=== PATIENT | male | born 1995 | race Caucasian/White ===

== ENCOUNTER → 2020-12-30 09:41 | Outpatient (CLI) | payer BC, SELFPAY ==
--- NOTE | 2020-12-30 09:48 | RAD_ITS ---
STUDY: X-RAY - ESOPHAGUS (BARIUM SWALLOW) WITH FLUOROSCOPY REASON FOR EXAM: Male, 25 years old. ESOPHAGEAL DYSPHAGIA TECHNIQUE: 28 view(s) of the esophagus were obtained following swallowing of barium. FLUOROSCOPY TIME (if supplied): (0:27) minutes/seconds COMPARISON: None. FINDINGS: There is no demonstrated esophageal foreign body. There is no demonstrated stricture or mucosal abnormality. Normal gastroesophageal junction, without a demonstrated hiatal hernia. Patient was not able to to ingest a 12 mm tablet at bedtime. Normal visualized aortic arch and descending thoracic aorta. Normal visualized pulmonary parenchyma. Normal visualized osseous structures of the thorax. RAD/Esophagus Single Contrast IMPRESSION: Normal plain film x-ray examination (barium swallow) of the esophagus. Electronically Signed: Ki Salas MD at 9:53 EDT , Service support ,
== END ==
PROVIDERS: PCP Family Medicine; Referring Provider Family Medicine; Visit Provider Family Medicine
DX: R13.10 Dysphagia, unspecified (principal)
CPT/HCPCS: 74220

== ENCOUNTER 2023-12-22 11:06 | Emergency (ER) | payer BC, SELFPAY ==
[2023-12-22 11:07] VITALS: BP 143/90; PULSE 86; RESP 14; TEMP 36.2; O2SAT 98; BMI 32.0
== END 2023-12-22 11:25 | disposition left against medical advice (07) ==
LOC: ED 11:33
PROVIDERS: PCP Family Medicine
DX: R69 Illness, unspecified (principal); Z53.21 Procedure and treatment not carried out due to patient leaving prior to being seen by health care provider